=== PATIENT | male | born 1955 | race American Indian/Alaskan Native ===

== ENCOUNTER 2017-04-25 14:50 | Outpatient (CLI) | payer MEDICAID ==
--- NOTE | 2017-04-25 15:53 | XRay Report ---
LEFT HAND, 3 views: History: Lump, mass, or foreign body in left thumb Normal bone mineralization. There is no evidence for radiopaque soft tissue foreign body in the thumb. 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 Moderate degenerative changes are also noted at the interphalangeal joint of the thumb. There is a bony protuberance projecting from the distal phalanx of the thumb measuring approximately 6 mm. This appears to represent a small osteochondroma. IMPRESSION: No foreign body identified. Degenerative changes. Probable osteochondroma projecting from the distal phalanx of the left thumb.
== END 2017-04-25 14:51 | disposition home or self-care (01) ==
LOC: XRAY 14:50
PROVIDERS: ATTEND Surgery
DX: S60.352A Superficial foreign body of left thumb, initial encounter (principal); M19.042 Primary osteoarthritis, left hand; X58.XXXA Exposure to other specified factors, initial encounter; Y93.89 Activity, other specified; Y92.89 Other specified places as the place of occurrence of the external cause; Y99.8 Other external cause status